=== PATIENT | female | born 1975 | race Caucasian/White ===

== ENCOUNTER 2017-05-14 15:59 | Outpatient (CLI) ==
[2016-07-04 13:40] VITALS: BMI 44.7
--- NOTE | 2017-05-14 16:24 | DI ---
EXAM: Two views of the left knee. History: Left knee trauma. Findings: No acute fracture or dislocation. Mild tricompartmental joint space narrowing with tiny osteophytes. No radiopaque foreign bodies. Impression: No acute osseous abnormality. Mild arthritis.
== END 2017-05-14 16:00 | disposition home or self-care (01) ==
LOC: RAD 15:59
PROVIDERS: ATTEND Family Medicine
DX: S89.92XA Unspecified injury of left lower leg, initial encounter (principal)

== ENCOUNTER 2017-07-13 08:07 | Outpatient (RCR) ==
[2016-07-04 13:40] VITALS: BMI 44.7
--- NOTE | 2017-07-13 16:33 | RS.OPPTEV2 ---
Date of Note: 07/13/17 Visit #: 1 Date of Evaluation: 07/13/17 Payer Source: Insurance Date of Onset/Injury/Change in Status: 05/13/17 Treatment Diagnosis: Left knee pain, knee joint stiffness History of Condition/Mechanism of Injury:: Patient reports left knee pain started when she was walking at work and caught her foot on the floor. She hyperextended the knee and felt a pop in the back of the knee. Reports no prior injuries or issues with either knee joint. States her claim for Workman' s Comp was denied. Prior Level of Function.....Patient was independent with: ADL's, Self Care, Work /Vocation, Caregiving, Ambulation/Mobility, Community Integration/Access Functional Limitations: Standing, Squatting, Ambulation, Community Access/ Integration Current Subjective/complaints:: Patient reports left knee pain and limited motion. States she feels like the knee joint is tight and she feels pain with bending the knee. 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 States she has increased discomfort due to just getting off her shift at work. Reports having to manage a flight of stairs at work. At home she has just two steps with no rail. States she has to get a running start to get up the steps. Takes the steps one at a time when descending. She has been taking an anti-inflammatory which has helped. She has not been icing the knee. Reports working 4 day shifts and she can tell the knee feels better on days she does not work. States she has not had an MRI at this time. Treatment Side (optional): Left Medical History Medical History: Unremarkable Hx Home Medications: Meloxicam Patient's Goals: Her goal is to get relief of left knee pain. Pain Assessment - Pain Description Pain Location: left knee Current Pain Intensity: 4/10 Worst Pain Intensity: 9/10 Functional Outcome Measure LE Functional Scale: 66 (66/80=17% impairment) - G Codes & Severity Modifier G Codes & Modifier: NA Source of G Code score: NA Observation - Observation Inspection: left knee presents with no bruising or redness. No signficant swelling noted to the left knee compared to the right. Comments: Standing posture without shoes demonstrates bilateral pes planus and genu valgus , worse on the left LE. Gait - Gait Pattern Gait Comments: Patient ambulates without an assistive device, independently. She demonstrates slight decreased stance on the left LE. - Left Knee ROM Left Knee Extension: -3 degrees from full extension Left Knee Flexion: 74 (degrees AROM) - Right Knee ROM Right Knee Extension: +2 hyperextension Right Knee Flexion: 114 (degrees AROM) - Left Knee Strength Left Knee Extension: 4+ Good + Left Knee Flexion: 4+ Good + - Right Knee Strength Right Knee Extension: 5 Normal Right Knee Flexion: 5 Normal Palpation Comments:: Patient reports tenderness with pressure to the patella. Slight tenderness with palpation over the quadriceps tendon. Reports no tenderness throughout the medial or lateral joint line. Sensation - Sensation Right Lower Extremity: Intact/Normal Left Lower Extremity: Intact/Normal Additional Comments: Additional Comments: SLR bilaterally 40-45 degrees. Interventions - Exercise/Activities/Manual Therapy Exercises/Activities: Patient instructed in HEP of ankle pumps, SLR's, hip adduction isometrics, and standing HS curls for ROM. Advised to avoid increased pain or popping with exercises. Also discussed avoiding turning with the foot planted. Manual Therapy: NA HOME EXERCISE PROGRAM: ankle pumps, SLR's, hip adduction isometrics, and standing HS curls. - Charges Total Direct Minutes: 40 mins Total Treatment Time: 40 mins Procedures billed for this date of service:: EZEQUIEL MICHELLE Assessment Assessment: Patient presents to therapy with reports of left knee pain and stiffness. She exhibits limited functional left knee AROM and tenderness with palpation and compression to the patella. She reports increased pain with activity,especially with being on her feet and ascending/descending stairs. She demonstrates potential to benefit from modalities to reduce inflammation and exercises to regain functional left knee AROM and joint strength. Patient Education: Education of diagnosis, Body/Joint mechanics, Home Exercise Program, Home Safety, Activity Modification, Education of Plan of Care Rehab Potential: Good Short Term Goals Goal #1: Pt independent and compliant with HEP. Goal to be met by: 07/27/17 Goal #2: Left knee AROM 0 to 105 degrees. Goal to be met by: 07/27/17 Goal #3: Left knee strength 5/5. 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 Goal to be met by: 08/22/17 Goal #2: Score on LE functional scale improved to 76/80. Goal to be met by: 08/22/17 Goal #3: Pt able to perform all activities at home and work without knee pain. Goal to be met by: 08/22/17 Goal #4: Pt to amb. on level/unlevel terrain without difficulty or knee pain. Goal to be met by: 08/22/17 Plan - Treatment to be Provided Procedures: Therapeutic Exercises, Therapeutic Activity, Manual Therapy, Patient Education Modalities: Electrical Stimulation, Ultrasound/Phonophoresis, Cryotherapy, Hot Packs - Treatment Plan Frequency: 2 X week Duration: 4 weeks ORDER # VISITS AND/OR THROUGH DATE: 08/22/17 - Treatment Code (1) Knee pain Code(s): M25.569 - PAIN IN UNSPECIFIED KNEE Qualifiers: Chronicity: acute Laterality: left Qualified Code(s): M25.562 - Pain in left knee (2) Knee stiffness Qualifiers: Laterality: left Qualified Code(s): M25.662 - Stiffness of left knee, not elsewhere classified (3) Other tear of medial meniscus, current injury, left knee, subsequent encounter Code(s): S83.242D - OTH TEAR OF MEDIAL MENISCUS, CURRENT INJURY, LEFT KNEE, SUBS Comments: S83.242D
== END 2017-07-24 ==
PROVIDERS: ATTEND Orthopaedic Surgery
DX: S83.242A Other tear of medial meniscus, current injury, left knee, initial encounter (principal)

== ENCOUNTER 2017-12-13 13:24 | Outpatient (CLI) ==
[2016-07-04 13:40] VITALS: BMI 44.7
== END 2017-12-13 13:25 | disposition home or self-care (01) ==
LOC: RAD 13:24
PROVIDERS: ATTEND Family Medicine
DX: Z12.31 Encounter for screening mammogram for malignant neoplasm of breast (principal)
CPT/HCPCS: 77067

== ENCOUNTER 2018-12-26 12:35 | Outpatient (CLI) ==
[2016-07-04 13:40] VITALS: BMI 44.7
--- NOTE | 2018-12-26 13:38 | DI ---
EXAM: CERVICAL SPINE, 3 VIEWS HISTORY: Upper extremity parasthesias FINDINGS: Slight reversal of normal lordosis. No spondylolisthesis, fracture or loss of vertebral b markos height. Normal bone density. No degenerative disc or facet disease. IMPRESSION: 1. Unremarkable exam other than slight reversal of lordosis which is nonspecific and may be related to patient position.
--- NOTE | 2018-12-26 13:40 | DI ---
EXAM: Thoracic spine three views HISTORY: Acute midline thoracic back pain FINDINGS: There is mild bony spurring of the mid thoracic spine. No fracture, loss of vertebral body height or spondylolisthesis. Subtle degenerative disc disease of the mid thoracic spine. No scolio sis. IMPRESSION: 1. Early degenerative changes of the mid thoracic spine. No fracture is seen.
== END 2018-12-26 12:36 | disposition home or self-care (01) ==
LOC: RAD 12:35
PROVIDERS: ATTEND Family Medicine
DX: R20.2 Paresthesia of skin (principal); M79.602 Pain in left arm; M54.6 Pain in thoracic spine

== ENCOUNTER 2019-03-23 10:15 | Outpatient (RCR) ==
[2016-07-04 13:40] VITALS: BMI 44.7
--- NOTE | 2019-03-06 13:15 | RS.OPPTEV2 ---
Date of Note: 03/06/19 Visit #: 1 Number of visits approved by Insurance: pending Date of Evaluation: 03/06/19 Payer Source: Insurance Surgery Performed?: No Treatment Diagnosis: spinal stenosis in cervical region History of Condition/Mechanism of Injury:: Pain began approx 1 month ago, states no definite injury. 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 Functional Limitations: Standing, Squatting, Ambulation, Community Access/ Integration Current Subjective/complaints:: pt states that her pain has decreased since initial episode. States she continues to have slight pain and tingling in LUE especially at work when trying to assist residents with dressing. Treatment Side (optional): Left *Precautions: n/a Medical History Medical History: Unremarkable, Arthritis Medical History Comments:: asthma Surgical History: Cholecystectomy Surgical History Comments:: colectomy with colostomy, reverse colostomy Smoking Status: Never smoker Hx Home Medications: singular, pro air inhaler, advair inhaler, antiinflammatory pill Patient's Goals: decrease cervical pain Pain Assessment - Pain Description Pain Location: cervical spine Current Pain Intensity: 2-3/10 Functional Outcome Measure Neck Disability Index: 3 - G Codes & Severity Modifier G Codes & Modifier: n/a Source of G Code score: n/a Observation - Observation Posture: Forward Head, Rounded Shoulders, Increased Thoracic Kyphosis, Decreased Cervical Lordosis Handedness: Right Gait - Gait Pattern General Gait Pattern Observation: No Deviations/Normal General Range of Motion: BUE WFL's. BLE WFL's Muscle Strength: BUE shld flex 4/5, elbow flex/ext 4+/5. BLE 5/5 - ROM Cervical Spine Range of Motion Limitations: Soft Tissue Tightness, Muscle Weakness, Pain Comments: pt cervical ROM WFL's with pain with cervical flex, and R lat side bending. - Strength Cervical Extension: 4 Good Cervical Flexion: 4- Good- Cervical Lateral Flexion: 4- Good- Cervical Rotation: 4- Good- - Special Tests Foraminal Distraction: Negative Foraminal Compression: Negative Left, Negative Right Palpation Palpation Findings: Tenderness, Muscle Guarding Comments:: pt with tenderness to palpation to L cervical and upper trap, with trigger point in area of L C7 and L upper trap Sensation - Sensation Right Upper Extremity: Intact/Normal Left Upper Extremity: Impaired (n/t LUE) Right Lower Extremity: Intact/Normal Left Lower Extremity: Intact/Normal Balance - Sitting Balance Static Sitting Balance: Normal Dynamic Sitting Balance: Normal - Standing Balance Static Standing Balance: Normal Dynamic Standing Balance: Normal - Heat/Cryotherapy Treatment: Hot Pack Comments:: cervical spine Interventions - Exercise/Activities/Manual Therapy Exercises/Activities: pt performed cervical retraction, scapular retraction, corner stretch, upper trap stretch Manual Therapy: NA HOME EXERCISE PROGRAM: pt given written HEP including: cervical retraction, scapular retraction, corner stretch, upper trap stretch. - Charges Timed Code Treatment Minutes: 46 Total Treatment Time: 58 Procedures billed for this date of service:: beatriz veliz, ex EVALUATION COMPLEXITY LEVEL EVALUATION COMPLEXITY LEVEL: HISTORY: Low, EXAM OF BODY SYSTEMS: Low, CLINICAL PRESENTATION: Low, CLINICAL DECISION MAKING: Low Assessment Assessment: pt presents with muscle tightness in L upper trap and cervical paraspinal as well as pain in cervical spine with radicular symptoms into LUE. Feel pt would benefit from skilled PT for therex for stretching, strengthening, as well as modalities to decrease cervical pain. Patient Education: Home Exercise Program, Education of Plan of Care Rehab Potential: Good Short Term Goals Goal #1: Pt independent and compliant with HEP. Goal to be met by: 03/17/19 Goal #2: Cervical ROM WFL's Goal to be met by: 03/17/19 Goal #3: Decreased muscle tightness L upper trap Goal to be met by: 03/17/19 Detention Goals Goal #1: pt able to perform normal daily activities with less pain Goal to be met by: 03/31/19 Goal #2: pt with no reports of radicular symptoms in LUE Goal to be met by: 03/31/19 Plan - Treatment to be Provided Procedures: Therapeutic Exercises, Therapeutic Activity, Manual Therapy, Massage , Patient Education Modalities: Electrical Stimulation, Ultrasound/Phonophoresis, Cryotherapy, Hot Packs, Mechanical Traction - Treatment Plan Frequency: 2-3x a week Duration: 4 weeks Dates of Detention Goals: 03/31/19 Expiration date of current Insurance Approval:: pending - Treatment Code (1) Cervical pain Code(s): M54.2 - CERVICALGIA (2) Spinal stenosis in cervical region Code(s): M48.02 - SPINAL STENOSIS, CERVICAL REGION (3) Radiculopathy affecting upper extremity Code(s): M54.10 - RADICULOPATHY, SITE UNSPECIFIED (4) Muscle weakness Code(s): M62.81 - MUSCLE WEAKNESS (GENERALIZED)
--- NOTE | 2019-03-17 14:18 | RS.OPPTDN ---
Subjective Date of Note: 03/17/19 Visit #: 2 Number of visits approved by Insurance: 6 Date of Evaluation: 03/06/19 Payer Source: Insurance Treatment Diagnosis: spinal stenosis in cervical region Current Subjective/complaints:: Patient says she came just from work. Reports pain is not bad. Rates 3/10 with radicular symptoms to the L UE consisting of tingling. States that laying on this side does not bother her as much as laying on the R. States if her arm hangs down or supported on ledge in car while driving, symptoms do not change. *Precautions: n/a - Treatment Modality: Ultrasound Parameters/Method Applied: continuous @ 1.5 w/cm2 x 12 mins bilateral UT, but with focus to the L Patient Position: Sitting - Heat/Cryotherapy Treatment: Hot Pack (15 mins cervical in supine ) Interventions - Exercise/Activities/Manual Therapy Exercises/Activities: pt receives passive cervical ROM (SB/rotation/levator scap gentle stretching). She performs shoulder shrugs and scap adduction. HEP review and began education of diagnosis and postural mechanics. Total minutes of Exercise: 10 Manual Therapy: NA HOME EXERCISE PROGRAM: pt given written HEP including: cervical retraction, scapular retraction, corner stretch, upper trap stretch. - Charges Timed Code Treatment Minutes: 22 Total Treatment Time: 47 Procedures billed for this date of service:: hp, u/s, ex Assessment: Patient indicates mild pain rating 3/10 following her shift at work. She notes pain at the L UT and tenderness throughout this area also indicating along the C6C7 spinous process. She felt slight relief from treatment today, but does have soreness with end range R SB. Patient Education: Education of diagnosis, Body/Joint mechanics, Home Exercise Program, Education of Plan of Care Patient demonstrates compliance with HEP?: Yes Short Term Goals Goal #1: Pt independent and compliant with HEP. Goal to be met by: 03/17/19 Progress towards Goal:: Progressing Goal #2: Cervical ROM WFL's Goal to be met by: 03/17/19 Goal #3: Decreased muscle tightness L upper trap Goal to be met by: 03/17/19 Social Media Senior Associate Goals Goal #1: pt able to perform normal daily activities with less pain Goal to be met by: 03/31/19 Goal #2: pt with no reports of radicular symptoms in LUE Goal to be met by: 03/31/19 Goal #3: Pt able to perform all activities at home and work without knee pain. Goal to be met by: 08/22/17 Progress towards goal: Progressing Goal #4: Pt to amb. on level/unlevel terrain without difficulty or knee pain. Goal to be met by: 08/22/17 Progress towards goal: Progressing Plan Dates of Social Media Senior Associate Goals: 03/31/19 Expiration date of current Insurance Approval:: 03/31/19 PLAN: Continue with modalities and therex to the cspine to reduce pain and improve mobility.
--- NOTE | 2019-03-21 09:59 | RS.OPPTDN ---
Subjective Date of Note: 03/21/19 Visit #: 3 Number of visits approved by Insurance: 6 Date of Evaluation: 03/06/19 Payer Source: Insurance Treatment Diagnosis: spinal stenosis in cervical region Current Subjective/complaints:: Patient says her pain is "about the same." States she works her midnight shift tonight. Reports she does not really have pain this morning, but describes stiffness and tenderness. Reports she has been performing HEP. *Precautions: n/a - Treatment Modality: Ultrasound Parameters/Method Applied: continuous @ 1.5 w/cm2 x 12 mins to bilateral UT, with focus to the R Patient Position: Sitting - Heat/Cryotherapy Treatment: Hot Pack (cervical x 20 mins in supine) Interventions - Exercise/Activities/Manual Therapy Exercises/Activities: pt receives passive cervical ROM (SB/rotation/levator scap gentle stretching). Isometric cervical retraction, SB, rotation 2x5. She performs shoulder shrugs and scap adduction. HEP review. Total minutes of Exercise: 12 Manual Therapy: NA HOME EXERCISE PROGRAM: pt given written HEP including: cervical retraction, scapular retraction, corner stretch, upper trap stretch. - Charges Timed Code Treatment Minutes: 24 Total Treatment Time: 44 Procedures billed for this date of service:: hp, u/s, ex Assessment: Patient does not present with neck pain, but stiffness remains with tenderness to the superior L scapula and R UT. She demo full Cspine rotation without pain. She appears to have increased flexibility following treatment with AROM, but no increase in symptoms. She should benefit from continued modalities and advancing cspine therex/postural strengthening. Patient Education: Education of diagnosis, Body/Joint mechanics, Home Exercise Program, Education of Plan of Care Patient demonstrates compliance with HEP?: Yes Short Term Goals Goal #1: Pt independent and compliant with HEP. Goal to be met by: 03/17/19 Progress towards Goal:: Progressing Goal #2: Cervical ROM WFL's Goal to be met by: 03/17/19 Progress towards Goal:: Progressing Goal #3: Decreased muscle tightness L upper trap Goal to be met by: 03/17/19 Progress towards Goal:: Progressing Shelter Goals Goal #1: pt able to perform normal daily activities with less pain Goal to be met by: 03/31/19 Goal #2: pt with no reports of radicular symptoms in LUE Goal to be met by: 03/31/19 Goal #3: Pt able to perform all activities at home and work without knee pain. Goal to be met by: 08/22/17 Progress towards goal: Progressing Goal #4: Pt to amb. on level/unlevel terrain without difficulty or knee pain. Goal to be met by: 08/22/17 Progress towards goal: Progressing Plan Dates of Hiv Counselor Goals: 03/31/19 Expiration date of current Insurance Approval:: 03/31/19 PLAN: Patient to continue with modalities and therex to the cspine to reduce pain and mm guarding.
--- NOTE | 2019-03-23 14:24 | RS.OPPTDN ---
Subjective Date of Note: 03/23/19 Visit #: 4 Number of visits approved by Insurance: 6 Date of Evaluation: 03/06/19 Payer Source: Insurance Treatment Diagnosis: spinal stenosis in cervical region Current Subjective/complaints:: Patient says she is generally sore in her back and LEs related to arthritis, but feels her neck pain is much better and can tell she has more mobility. She says tightness seems to be better as well. States she does not seem to be as tender to the L side of her neck compared to her first visit. *Precautions: n/a Pain Assessment - Pain Description Pain Location: just discomfort at the neck - Treatment Modality: Ultrasound Parameters/Method Applied: continuous @ 1.5 w/cm2 x 12 mins to bilateral UT and mid cervical paraspinals. More focus to the L than R Patient Position: Sitting - Heat/Cryotherapy Treatment: Hot Pack (cervical in supine x 20 mins) Interventions - Exercise/Activities/Manual Therapy Exercises/Activities: na, see MT tab Manual Therapy: Deep tissue massage and trigger point work to bilateral UT. More emphasis placed to the L. pt receives passive cervical ROM (SB/rotation/ levator scap gentle stretching). HEP and postural technique review. Total minutes of Manual Therapy: 14 HOME EXERCISE PROGRAM: pt given written HEP including: cervical retraction, scapular retraction, corner stretch, upper trap stretch. - Charges Timed Code Treatment Minutes: 26 Total Treatment Time: 46 Procedures billed for this date of service:: hp, u/s, MT Assessment: Patient demo mild to moderate mm guarding throughout the bilateral UT, which does improve with MT today. I do not feel any active trigger points to these areas, but she does have tenderness to mild palpation to the R of the C4/C5 and L superior scap. She is able to joel increased active cspine ROM compared to previous visit, but is having general arthritic ache throughout her body related to damp weather. Patient Education: Education of diagnosis, Body/Joint mechanics, Home Exercise Program Patient demonstrates compliance with HEP?: Yes Short Term Goals Goal #1: Pt independent and compliant with HEP. Goal to be met by: 03/17/19 Progress towards Goal:: Progressing Goal #2: Cervical ROM WFL's Goal to be met by: 03/17/19 Progress towards Goal:: Progressing Goal #3: Decreased muscle tightness L upper trap Goal to be met by: 03/17/19 Progress towards Goal:: Progressing [facility] Goals Goal #1: pt able to perform normal daily activities with less pain Goal to be met by: 03/31/19 Goal #2: pt with no reports of radicular symptoms in LUE Goal to be met by: 03/31/19 Goal #3: Pt able to perform all activities at home and work without knee pain. Goal to be met by: 08/22/17 Progress towards goal: Progressing Goal #4: Pt to amb. on level/unlevel terrain without difficulty or knee pain. Goal to be met by: 08/22/17 Progress towards goal: Progressing Plan Dates of [facility] Goals: 03/31/19 Expiration date of current Insurance Approval:: 03/31/19 PLAN: Patient to continue 2 more sessions per order next week to ease pain and improve ROM/tolerance to work activities.
== END 2019-03-24 23:59 ==
PROVIDERS: ATTEND Nurse Practitioner
DX: M48.02 Spinal stenosis, cervical region (principal)